=== PATIENT | female | born 1990 | race African-American/Black ===

== ENCOUNTER → 2020-02-26 | Outpatient (CLI) | payer OTHER | LOC: RAD 11:07 | DX: Z02.1 Encounter for pre-employment examination (principal) ==

== ENCOUNTER → 2020-03-31 | Outpatient (CLI) | payer OTHER | LOC: LAB 10:54 | PROVIDERS: ATTEND Specialist | DX: Z20.828 Contact with and (suspected) exposure to other viral communicable diseases (principal) ==

== ENCOUNTER → 2020-04-08 | Outpatient (CLI) | payer OTHER | LOC: LAB 14:49 | PROVIDERS: ATTEND Specialist | DX: Z20.828 Contact with and (suspected) exposure to other viral communicable diseases (principal) ==

== ENCOUNTER → 2020-04-15 | Outpatient (CLI) | payer OTHER | LOC: LAB 13:08 | PROVIDERS: ATTEND Specialist | DX: R05 Cough (principal); R50.9 Fever, unspecified; Z20.828 Contact with and (suspected) exposure to other viral communicable diseases ==

== ENCOUNTER → 2020-04-21 | Outpatient (CLI) | payer OTHER | LOC: LAB 14:01 | PROVIDERS: ATTEND Specialist | DX: Z20.828 Contact with and (suspected) exposure to other viral communicable diseases (principal) ==

== ENCOUNTER → 2020-04-29 | Outpatient (CLI) | payer OTHER | LOC: LAB 14:20 | PROVIDERS: ATTEND Specialist | DX: Z20.828 Contact with and (suspected) exposure to other viral communicable diseases (principal) ==

== ENCOUNTER → 2020-05-06 | Outpatient (CLI) | payer OTHER | LOC: LAB 14:37 | PROVIDERS: ATTEND Specialist | DX: Z20.822 Contact with and (suspected) exposure to COVID-19 (principal) ==

== ENCOUNTER → 2020-05-12 | Outpatient (CLI) | payer OTHER | LOC: LAB 10:46 | PROVIDERS: ATTEND Specialist | DX: Z20.822 Contact with and (suspected) exposure to COVID-19 (principal) ==

== ENCOUNTER → 2020-06-24 | Outpatient (CLI) | payer OTHER ==
[2020-06-24 11:51] LABS: ABSOLUTE NEUTROPHILS 2.8 thou/uL (1.4-8.2); BASOPHILS 1.3 % (0.0-2.0); EOSINOPHILS 5.5 % (0.0-3.0); HEMATOCRIT 40.6 % (37.0-47.0); HEMOGLOBIN 12.9 gm/dL (12.0-15.0); LYMPHOCYTES 31.5 % (24.0-44.0); MCHC 31.8 g/dL (28.0-37.0); MCV 84.7 fL (80.0-100.0); MONOCYTES 6.2 % (1.0-8.0); PLATELET COUNT 235 thou/uL (150-400); POLYS 55.5 % (36.0-66.0); RDW 13.6 % (10.5-14.5)
[2020-06-24 12:09] LABS: ALBUMIN 4.2 g/dL (3.4-5.0); ANION GAP 5 mmol/L (7-16); BUN 11 mg/dL (7-18); CALCIUM 9.2 mg/dL (8.5-10.1); CHLORIDE 100 mmol/L (98-107); CHOLESTEROL 105 mg/dL (<200); CO2 28 mmol/L (21-32); GLUCOSE 88 mg/dL (74-106); HDL CHOLESTEROL 45 mg/dL (>40); LDL CHOLESTEROL 44 mg/dL (<100); SGOT 15 U/L (15-37); SGPT 13 U/L (30-65); SODIUM 133 mmol/L (136-145); TC:HDL 2.3 Ratio (Not establshd); TOTAL BILIRUBIN 0.3 mg/dL (0.2-1.0); TOTAL PROTEIN 8.6 g/dL (6.4-8.2); TRIGLYCERIDE 80 mg/dL (<150); VLDL 16 mg/dL (<40)
== END ==
LOC: LAB 10:59
PROVIDERS: ATTEND Nurse Practitioner
DX: R07.9 Chest pain, unspecified (principal); E55.9 Vitamin D deficiency, unspecified